=== PATIENT | male | born 1995 | race Caucasian/White ===

== ENCOUNTER 2019-02-20 23:16 | Emergency (ER) | payer BC ==
[~2019-02-20] VITALS: Ht 175.3 cm; Wt 82.0 kg
[2019-02-20] MEDS ORDERED: ONDANSETRON HCL 4MG/2ML INJ IV ONE (23:45)
[2019-02-20] MEDS ORDERED: MORPHINE SULFATE 4 MG/ML CPJ (NOT FOR IM USE) IV ONE (23:45)
[2019-02-21] MEDS ORDERED: TETANUS, DIPHTHERIA, PERTUSSIS VAC/PF 0.5ML (>7YR OLD) IM ONE (02:30)
[2019-02-21 03:01] VITALS: BP 118/81
== END 2019-02-21 03:33 | disposition short-term general hospital (02) ==
LOC: ER 23:16
DX: S02.40FA Zygomatic fracture, left side, initial encounter for closed fracture (principal); S01.511A Laceration without foreign body of lip, initial encounter; Y08.89XA Assault by other specified means, initial encounter; Y93.89 Activity, other specified; Y92.89 Other specified places as the place of occurrence of the external cause; Y99.8 Other external cause status
CPT/HCPCS: 70450; 70486; 90471; 90715; 96374; 96375; 99285; J2270; J2405; Z7610